=== PATIENT | female | born 1940 | race Caucasian/White ===

== ENCOUNTER 2019-11-19 12:28 | Emergency (ER) | payer MEDICARE ==
[~2019-11-19] VITALS: Ht 165.1 cm; Wt 64.4 kg
[~2019-11-19 12:28] MED LIST: ASPI325 PO; ATOR40TA PO; Allopurinol100 MG PO; CALCAVITDA; CHOL10002 PO; CIPR500 PO; GLI; GLIP10 PO; HUMULIN 70100 UNIT/2 SC; HYDACE5; HYDMOR2 PO; INSLI100I; INSLI100I SC; INSULANI SC; INSULANPEN SC; LEVFLO250; LISI20; LISI20 PO; Lopressor 25 mg25 MG PO; MAGOXI400 PO; METF500; METF500 PO; METF500C PO; METO10 PO; METR500 PO; ONDA4 PO; OXYACE5T PO; PIOG30 PO; PROM25 PO; SIMV10; SIMV20 PO; Tylenol325 MG PO; VITA-C120 GM PO
[2019-11-19] MEDS ORDERED: Norco 5-325 Ta1 EACH PO (19:13)
[2019-11-19] MEDS ORDERED: CEPH500 PO (19:17)
== END 2019-11-19 19:30 | disposition home or self-care (01) ==
LOC: ER 12:28
DX: S62.633B Displaced fracture of distal phalanx of left middle finger, initial encounter for open fracture (principal); S62.635B Displaced fracture of distal phalanx of left ring finger, initial encounter for open fracture; E11.22 Type 2 diabetes mellitus with diabetic chronic kidney disease; I12.9 Hypertensive chronic kidney disease with stage 1 through stage 4 chronic kidney disease, or unspecified chronic kidney disease; N18.1 Chronic kidney disease, stage 1; Z88.8 Allergy status to other drugs, medicaments and biological substances; Z79.82 Long term (current) use of aspirin; Z79.4 Long term (current) use of insulin; Z79.899 Other long term (current) drug therapy; Z87.891 Personal history of nicotine dependence; Z23 Encounter for immunization; W01.10XA Fall on same level from slipping, tripping and stumbling with subsequent striking against unspecified object, initial encounter; Y93.89 Activity, other specified
CPT/HCPCS: 11750; 12031; 73130; 90471; 90714; 99282-25; A9270-GY

== ENCOUNTER 2021-11-24 12:44 | Day surgery (SDC) | payer MEDICARE ==
[~2021-11-24] VITALS: Ht 167.6 cm; Wt 55.5 kg
[~2021-11-24 12:44] MED LIST changes: +CEPH500 PO; +Norco 5-325 Ta1 EACH PO
[2021-11-24] MEDS ORDERED: GABA100 (13:11)
[2021-11-24] MEDS ORDERED: BASAGLAR K100 UNIT/1 (13:11)
[2021-11-24] MEDS ORDERED: METF500 (13:12)
[2021-11-24] MEDS ORDERED: NOVOLOG100 UNIT/3 (13:12)
== END 2021-11-24 15:20 | disposition home or self-care (01) ==
LOC: ORSCSDS 12:44
PROVIDERS: Student in an Organized Health Care Education/Training Program
PROC: 0DBN8ZX Excision of Sigmoid Colon, Via Natural or Artificial Opening Endoscopic, Diagnostic (ICD-10-PCS; principal; 2021-11-24 14:15)
PROC: 0DBK8ZX Excision of Ascending Colon, Via Natural or Artificial Opening Endoscopic, Diagnostic (ICD-10-PCS; principal; 2021-11-24 14:15)
PROC: 0DBG8ZX Excision of Left Large Intestine, Via Natural or Artificial Opening Endoscopic, Diagnostic (ICD-10-PCS; principal; 2021-11-24 14:15)
PROC: 0DBF8ZX Excision of Right Large Intestine, Via Natural or Artificial Opening Endoscopic, Diagnostic (ICD-10-PCS; principal; 2021-11-24 14:15)
DX: K52.9 Noninfective gastroenteritis and colitis, unspecified (principal); D12.2 Benign neoplasm of ascending colon; K64.8 Other hemorrhoids; K57.30 Diverticulosis of large intestine without perforation or abscess without bleeding; Z86.010 Personal history of colon polyps; E11.22 Type 2 diabetes mellitus with diabetic chronic kidney disease; N18.9 Chronic kidney disease, unspecified; Z79.84 Long term (current) use of oral hypoglycemic drugs; Z79.4 Long term (current) use of insulin; Z79.899 Other long term (current) drug therapy; Z87.891 Personal history of nicotine dependence
CPT/HCPCS: 82947; 88305; J2704; J7120

== ENCOUNTER 2024-05-03 10:58 | Inpatient (IN) | payer MEDICARE ==
[~2024-05-03] VITALS: Ht 165.1 cm; Wt 54.4 kg
[~2024-05-03 10:58] MED LIST changes: +BASAGLAR K100 UNIT/1; +GABA100 PO; +NOVOLOG100 UNIT/3
[2024-05-03 11:39] LABS: BASOPHILS ABSOLUTE AUTO 0.16 K/mm3 (0.00-0.23); BASOPHILS PERCENT AUTO 2 % (0-2); EOSINOPHILS ABSOLUTE AUTO 0.49 K/mm3 (0.00-0.68); EOSINOPHILS PERCENT AUTO 5 % (0-6); IMMATURE GRAN ABSOLUTE AUTO 0.03 K/mm3 (0.00-0.10); IMMATURE GRAN PERCENT AUTO 0 % (0-1); LYMPHOCYTES ABSOLUTE AUTO 2.54 K/mm3 (0.84-5.20); LYMPHOCYTES PERCENT AUTO 24 % (21-46); MONOCYTES ABSOLUTE AUTO 0.85 K/mm3 (0.16-1.47); MONOCYTES PERCENT AUTO 8 % (4-13); Mean Corpuscular HGB 30.3 pg (26.0-34.0); Mean Corpuscular HGB Conc 33.3 g/dL (31.5-36.5); Mean Corpuscular Volume 91 fL (80-100); Mean Platelet Volume 9.5 fL (9.1-12.4); NEUTROPHILS ABSOLUTE AUTO 6.57 K/mm3 (1.96-9.15); NEUTROPHILS PERCENT AUTO 62 % (41-73); Platelet Count 258 K/mm3 (150-400); RDW Coefficient Variation 15.3 % (11.7-14.2); RDW Standard Deviation 50.4 fL (35.1-46.3); Red Blood Cell Count 4.62 M/mm3 (3.80-5.20); White Blood Cell Count 10.64 K/mm3 (4.00-11.30)
[2024-05-03 12:20] LABS: Albumin, Blood 3.7 g/dL (3.4-5.0); Bilirubin, Total 0.6 mg/dL (0.1-1.0); Bun/Creatinine Ratio 19.8 (12.0-20.0); Calcium, Blood 10.3 mg/dL (8.5-10.1); Creatinine, Blood 1.26 mg/dL (0.40-1.00); Globulin, Blood 3.6 g/dL (2.2-4.0); Potassium, Blood 3.7 mmol/L (3.5-5.5); Total Protein, Blood 7.3 g/dL (6.4-8.2)
[2024-05-03 15:19] LABS: Source, Urine Clean Catch
[2024-05-03 15:24] LABS: Appearance, Urine Clear (Clear); Bilirubin, Urine Neg (Neg); Blood, Urine Neg (Neg); Color, Urine Yellow (P-Yellow); Glucose Qualitative, Urine Neg (Neg); Ketones, Urine Neg (Neg); Leukocyte Esterase, Urine 1+ (Neg); Nitrite, Urine Neg (Neg); Protein, Urine 1+ (Neg); Specific Gravity, Urine 1.025 (1.003-1.022); Urobilinogen, Urine NORM (Normal)
[2024-05-03 15:34] LABS: Red Blood Cells, Urine 0-2 /hpf (0-2); Squamous Epithelial Cells Rare /hpf (Few); White Blood Cells, Urine 0-2 /hpf (0-5)
[2024-05-03 15:35] LABS: Bacteria Few /hpf
[2024-05-03] MEDS ORDERED: Aspirin 325 MG Tab PO ONE (17:00)
[2024-05-03] MEDS ORDERED: Clopidogrel Bisulfate 75 MG Tab PO ONE (17:05)
[2024-05-03] MEDS ORDERED: Ondansetron HCl 2 MG / ML 2ML Vial IV PRN (18:10)
[2024-05-03] MEDS ORDERED: NS 1,000 ML IV SCH (18:10)
[2024-05-03] MEDS ORDERED: ALEN70 PO (19:30)
[2024-05-03] MEDS ORDERED: ATORVASTATIN CA20 MG PO (19:31)
[2024-05-03 20:49] VITALS: BP 159/88
[2024-05-04 03:39] VITALS: BP 137/67
[2024-05-04 05:23] LABS: BASOPHILS ABSOLUTE AUTO 0.13 K/mm3 (0.00-0.23); BASOPHILS PERCENT AUTO 2 % (0-2); EOSINOPHILS ABSOLUTE AUTO 0.59 K/mm3 (0.00-0.68); EOSINOPHILS PERCENT AUTO 7 % (0-6); Hematocrit 40.1 % (33.0-51.0); Hemoglobin 13.6 g/dL (11.5-16.0); IMMATURE GRAN ABSOLUTE AUTO 0.01 K/mm3 (0.00-0.10); IMMATURE GRAN PERCENT AUTO 0 % (0-1); LYMPHOCYTES ABSOLUTE AUTO 2.12 K/mm3 (0.84-5.20); LYMPHOCYTES PERCENT AUTO 25 % (21-46); MONOCYTES ABSOLUTE AUTO 0.79 K/mm3 (0.16-1.47); MONOCYTES PERCENT AUTO 9 % (4-13); Mean Corpuscular HGB 30.5 pg (26.0-34.0); Mean Corpuscular HGB Conc 33.9 g/dL (31.5-36.5); Mean Corpuscular Volume 90 fL (80-100); Mean Platelet Volume 9.6 fL (9.1-12.4); NEUTROPHILS ABSOLUTE AUTO 4.83 K/mm3 (1.96-9.15); NEUTROPHILS PERCENT AUTO 57 % (41-73); Platelet Count 213 K/mm3 (150-400); RDW Coefficient Variation 15.1 % (11.7-14.2); RDW Standard Deviation 50.2 fL (35.1-46.3); Red Blood Cell Count 4.46 M/mm3 (3.80-5.20); White Blood Cell Count 8.47 K/mm3 (4.00-11.30)
[2024-05-04 05:51] LABS: Albumin, Blood 3.4 g/dL (3.4-5.0); Bilirubin, Total 0.5 mg/dL (0.1-1.0); Bun/Creatinine Ratio 19.4 (12.0-20.0); Calcium, Blood 9.3 mg/dL (8.5-10.1); Creatinine, Blood 0.98 mg/dL (0.40-1.00); Globulin, Blood 3.3 g/dL (2.2-4.0); Magnesium, Blood 1.6 mg/dL (1.6-2.4); Potassium, Blood 3.5 mmol/L (3.5-5.5); Total Protein, Blood 6.7 g/dL (6.4-8.2)
--- NOTE | 2024-05-04 05:54 | NUR ---
SHIFT SUMMARY PT ADMITTED LAST EVENING WITH R/O CVA. PT WITH SLIGHT LEFT SIDED WEAKNESS AND LEFT FACE NUMBNESS. NO SLURRED SPEECH NOTED. PT UP TO BATHROOM WITH SBA AND WALKER. MRI CHECKLIST COMPLETED FOR IMAGING TODAY. PT DID NOT SLEEP DURING THE NIGHT. DENIES PAIN, STATED, "I AM RESTING, JUST NOT ABLE TO SLEEP". BED IN LOWEST POSITION, BED ALARM ON, CALL LIGHT WITHIN REACH, SIDERAILS UP X2.
[2024-05-04 07:07] VITALS: BP 145/84
[2024-05-04] MEDS ORDERED: Insulin Human Lispro 100 Units/ML 3ML Syringe SC SCH (07:30)
--- NOTE | 2024-05-04 07:36 | NUR ---
ASSUMPTION OF CARE: AWAKE DURING SHIFT CHANGE REPORT. SITTING UP IN BED, ON PHONE. COMPLETED MRI SCREENING FORM AND CONFIRMATIONS IN CHART. BED IN LOWEST POSITION. CALL LIGHT WITHIN REACH. NO ACUTE NEEDS.
[2024-05-04] MEDS ORDERED: Enoxaparin 30 MG/0.3 ML SYR SC SCH (09:00)
[2024-05-04] MEDS ORDERED: Clopidogrel Bisulfate 75 MG Tab PO SCH (09:00)
[2024-05-04] MEDS ORDERED: Aspirin 81 MG Chew PO SCH (09:00)
[2024-05-04] MEDS ORDERED: Atorvastatin 40 MG Tab PO SCH (09:00)
[2024-05-04] MEDS ORDERED: Aspir 8181 MG PO (14:16)
[2024-05-04] MEDS ORDERED: CLOP75 PO (14:16)
[2024-05-04] MEDS ORDERED: BASAGLAR K100 UNIT/1 SC (14:22)
[2024-05-04] MEDS ORDERED: NOVOLOG FL100 UNIT/3 SC (14:23)
--- NOTE | 2024-05-04 15:54 | NUR ---
DISCHARGE SUMMARY: A&Ox4. PLEASANT AND COOPERATIVE WITH CARE. CALLS APPROPRIATELY AND IS ABLE TO ADVOCATE NEEDS EFFECTIVELY. AMBULATES SBA. CONTINENT OF BOWEL AND BLADDER. MEDS WHOLE c FLUIDS. INCREASING CONFUSION THE DAY WENT ON, BUT STATES THIS HAS BEEN HER BASELINE, RECENTLY. MRI COMPLETED AND CONFIRMED ACUTE INFARCT. APPROPRIATE FOR DC. MEDICATION REC FAXED TO PHARMACY. INSTRUCTED TO FOLLOW-UP WITH PROVIDER ORDERED. LEFT FLOOR AT 1310 WITH ALL BELONGINGS AND DISCHARGE PACKET. TRANSPORTATION PROVIDED BY .
== END 2024-05-04 16:03 | disposition home health service (06) | DRG 65 ==
LOC: ER 10:58 → ERHOLD 18:04 → MEDS 18:04
PROVIDERS: Nurse Practitioner Acute Care; Physician Assistant; ADMIT Student in an Organized Health Care Education/Training Program
DX: I63.9 Cerebral infarction, unspecified (principal); N17.9 Acute kidney failure, unspecified; E78.5 Hyperlipidemia, unspecified; I12.9 Hypertensive chronic kidney disease with stage 1 through stage 4 chronic kidney disease, or unspecified chronic kidney disease; E11.22 Type 2 diabetes mellitus with diabetic chronic kidney disease; E11.649 Type 2 diabetes mellitus with hypoglycemia without coma; R29.701 NIHSS score 1; N18.2 Chronic kidney disease, stage 2 (mild); Z79.84 Long term (current) use of oral hypoglycemic drugs; Z79.4 Long term (current) use of insulin; Z79.899 Other long term (current) drug therapy; Z87.442 Personal history of urinary calculi; Z90.49 Acquired absence of other specified parts of digestive tract; Z98.890 Other specified postprocedural states; Z87.19 Personal history of other diseases of the digestive system
CPT/HCPCS: 36415; 70450; 70496; 70498; 70551; 80053; 81001; 82947; 83735; 85025; 87086; 92610; 93005; 93010; 93306; 94760; 97116; 97162; 97165; 97535; 99285-25; A9270; J7030; Q9967

== ENCOUNTER → 2024-08-08 | Outpatient (CLI) | payer MEDICARE ==
[~2024-08-08] MED LIST changes: +ALEN70 PO; +ATORVASTATIN CA20 MG PO; +Aspir 8181 MG PO; +BASAGLAR K100 UNIT/1 SC; +CLOP75 PO; +NOVOLOG FL100 UNIT/3 SC
== END ==
LOC: LAB SHORT 16:21 → LAB 16:21
DX: N39.0 Urinary tract infection, site not specified (principal)
CPT/HCPCS: 87086